=== PATIENT | female | born 1990 | race African-American/Black ===

== ENCOUNTER 2017-12-19 18:06 | Emergency (ER) | payer MEDICAID ==
[~2017-12-19] VITALS: Ht 160 cm; Wt 86.6 kg
[~2017-12-19 18:06] MED LIST: AMOXICILLIN500 MG ORAL; CYCLOBENZAPRINE10 MG ORAL; FLUCONAZOLE100 MG ORAL; IBUPROFEN600 MG ORAL; KENALOG 0.1% CR15 GM APPLIC; MEDROL DOSEPAK4 MG ORAL; NIZORAL 2% C1 APPLIC TOPIC; NKM; NORCO 5-325 TA1 EACH ORAL
[2017-12-19 18:20] VITALS: BP 126/78
[2017-12-19] MEDS ORDERED: Lidocaine 2% Visc 15ml soln ORAL ONE (19:15)
--- NOTE | 2017-12-19 19:15 | Emergency Room Report ---
History of Present Illness General Chief Complaint: Pain Source: Patient Present Illness HPI 27-year-old female presents to the emergency department complaining of 7 out of 10 in severity tightness/burning sensation in her chest 2 days. Patient denies history of acid reflux or cardiac history. Patient states that pain is exacerbated upon taking deep breaths or swallowing. She denies trauma, fall or recent upper respiratory symptoms. Patient denies history of asthma, COPD or smoking. She denies abdominal pain. Pt. reports position does not affect her symptoms. Pt. denies taking estrogen related medications, recent travel or surgeries. Denies symptoms of claudication. Denies CP, Palpitations, LOC, AMS, dizziness, Changes in Vision, Sensation, paresthesias, or a sudden severe headache. Denies Pmhx. Pt. reports she is adopted and Family medical hx is unk. Allergies: Coded Allergies: No Known Allergies (Unverified , 01/21/14) Patient History Past Medical History: none, see triage record Past Surgical History: none Pertinent Family History: none Now: No Reviewed Nursing Documentation: PMH: Agreed; PSxH: Agreed Nursing Documentation-PMH Past Medical History: No Stated History Review of Systems All Other Systems: negative except mentioned in HPI Physical Exam Vital Signs Date Time Temp Pulse Resp B/P (MAP) Pulse Ox O2 Delivery O2 Flow Rate FiO2 12/19/17 18:09 97.9 83 17 126/78 98 Room Air Sp02 EP Interpretation: reviewed, normal General Appearance: no apparent distress, alert, GCS 15, non-toxic Head: normocephalic, atraumatic Eyes: bilateral eye normal inspection, bilateral eye PERRL ENT: hearing grossly normal, normal pharynx, normal voice, uvula midline, moist mucus membranes Neck: full range of motion Respiratory: chest non-tender, lungs clear, normal breath sounds, no respiratory distress, no accessory muscle use, no wheezing, speaking full sentences Cardiovascular #1: regular rate, rhythm, no edema, normal capillary refill Gastrointestinal: normal bowel sounds, non tender, soft Musculoskeletal: back normal, gait/station normal, normal range of motion, non- tender Neurologic: alert, oriented x3, responsive, motor strength/tone normal, sensory intact, speech normal, grossly normal Psychiatric: judgement/insight normal Skin: normal color, no rash, warm/dry, well hydrated Lymphatic: no adenopathy Medical Decision Making PA Attestation Dr. Wyman is my supervising Physician whom patient management has been discussed with. Diagnostic Impression: Primary Impression: Gastritis Qualified Codes: K29.70 - Gastritis, unspecified, without bleeding Additional Impression: Nonspecific chest pain ER Course 27-year-old female presents to the emergency department complaining of 7 out of 10 in severity tightness/burning sensation in her chest 2 days. Patient denies history of acid reflux or cardiac history. Patient states that pain is exacerbated upon taking deep breaths or swallowing. She denies trauma, fall or recent upper respiratory symptoms. Patient denies history of asthma, COPD or smoking. She denies abdominal pain. Pt. reports position does not affect her symptoms. Pt. denies taking estrogen related medications, recent travel or surgeries. Denies symptoms of claudication. Denies CP, Palpitations, LOC, AMS, dizziness, Changes in Vision, Sensation, paresthesias, or a sudden severe headache. Denies Pmhx. Pt. reports she is adopted and Family medical hx is unk. Ddx considered but are not limited to GE, colitis, acute appy, SBO, H.pylori, Gastritis, PNA, pericarditis just to name a few. Vital signs: pt. is afebrile, H&PE are most consistent with Gastritis - no evidence to suggest acute abdomen on physical exam. ORDERS: -EKG and CXR: unremarkable ED INTERVENTIONS: -Mylanta PO -Lidocaine PO -Pepcid PO -I do not identify an emergent condition at this time. With current presentation , pt. is stable for close outpatient follow up and conservative treatment. D/ w pt. to return promptly to ED with worsening or new symptoms.- Pt. (and or responsible democrat) verbalizes' understanding and agreement with proposed treatment plan.proposed treatment plan. DISCHARGE: At this time pt. is stable for d/c to home. Will provide printed patient care instructions, and any necessary prescriptions. Care plan and follow up instructions have been discussed with the patient prior to discharge. EKG Diagnostic Results EP Interpretation: Dr. Wyman Rate: normal - 84 Rhythm: NSR ST Segments: no acute changes ASA given to the pt in ED: No PA Scribe Text This Interpretation was scribed by MYRA Mathias. Chest X-Ray Diagnostic Results Chest X-Ray Diagnostic Results : Chest X-Ray Ordered: Yes # of Views/Limited/Complete: 1 View Indication: Shortness of Breath EP Interpretation: Yes MYRA Xray: Interpretation reviewed, by supervising MD, and agrees with findings. Interpretation: no consolidation, no effusion, no pneumothorax, no acute cardiopulmonary disease Impression: No acute disease Electronically Signed by: Winter Mathias PA-C Last Vital Signs Date Time Temp Pulse Resp B/P (MAP) Pulse Ox O2 Delivery O2 Flow Rate FiO2 12/19/17 18:20 97.9 92 16 126/78 98 Room Air Disposition: HOME, SELF-CARE Condition: Stable Scripts Simethicone* (SIMETHICONE*) 80 Mg Tab.chew 80 MG ORAL Q8H PRN for GAS PAIN, #20 TAB 0 Refills Prov: Winter Mathias 12/19/17 Ranitidine Hcl* (ZANTAC*) 150 Mg Tablet 150 MG ORAL TWICE A DAY, #14 TAB Prov: Winter Mathias 12/19/17 Patient Instructions: Food Choices for Gastroesophageal Reflux Disease, Adult, [id number], Gastroesophageal Reflux Disease, Adult, [id number], Nonspecific Chest Pain, [id number] Additional Instructions: Take medications as directed. Follow up with a Primary Care Provider in 3-5 days, even if your symptoms have resolved. --Please review list of primary care clinics, if you do not already have a primary care provider Return sooner to ED if new symptoms occur, or current symptoms become worse. - Please note that this Emergency Department Report was dictated using [employer] worker technology software, occasionally this can lead to erroneous entry secondary to interpretation by the dictation equipment. Winter Mathias Dec 19, 2017 19:15
[2017-12-19] MEDS ORDERED: RANITIDINE HCL150 MG ORAL (19:16)
[2017-12-19] MEDS ORDERED: SIMETHICONE80 MG ORAL (19:16)
[2017-12-19 19:53] VITALS: BP 122/76
[2017-12-19 19:54] VITALS: BP 122/76
--- NOTE | 2017-12-20 13:51 | Diagnostic Imaging Report ---
Indication: Chest pain Comparison: 01/21/2014 A single view chest radiograph was obtained. Findings: Cardiomediastinal appearance is within normal limits for age. The lungs are clear. Pulmonary vascularity is appropriate. The diaphragmatic contour is smooth and costophrenic angles are sharp. No pleural effusions are identified. The bones are unremarkable. Impression: No acute findings
--- NOTE | 2017-12-21 15:15 | Cardiology Report ---
APPROVED REPORT EKG Measurement Heart [id number] Normal sinus rhythm Possible Left atrial enlargement Nonspecific T wave abnormality Abnormal ECG
== END 2017-12-19 19:55 | disposition home or self-care (01) ==
LOC: EMR 18:20
DX: K29.70 Gastritis, unspecified, without bleeding (principal); R07.89 Other chest pain
CPT/HCPCS: 71045; 93005; 99283

== ENCOUNTER 2018-07-03 17:51 | Emergency (ER) | payer MEDICAID ==
[~2018-07-03] VITALS: Ht 160 cm; Wt 77.1 kg
[~2018-07-03 17:51] MED LIST changes: +RANITIDINE HCL150 MG ORAL; +SIMETHICONE80 MG ORAL
[2018-07-03 17:56] VITALS: BP 123/80
--- NOTE | 2018-07-03 18:23 | Emergency Room Report ---
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 Denies fall and injury. Complains of a pulsatile pain in the right forearm with minimal tingling however denies numbness. Pain started this morning and progressively worsened throughout the day. 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 Not taking any medication for pain came to the emergency room for worsening pain at work. Denies tingling and numbness, and all other injuries. Denies chest pain , palpitation, shortness of breath, and all other associated symptoms Allergies: Coded Allergies: No Known Allergies (Unverified , 01/21/14) Patient History Past Medical History: see triage record Past Surgical History: unable to obtain Pertinent Family History: none Last Menstrual Period: 06/02/18 Now: No Immunizations: UTD Reviewed Nursing Documentation: PMH: Agreed; PSxH: Agreed Nursing Documentation-PMH Past Medical History: No History, Except For Review of Systems All Other Systems: negative except mentioned in HPI Physical Exam Vital Signs Date Time Temp Pulse Resp B/P (MAP) Pulse Ox O2 Delivery O2 Flow Rate FiO2 07/03/18 17:56 97.9 76 16 123/80 (94) 97 Room Air Sp02 EP Interpretation: reviewed, normal General Appearance: normal inspection, well appearing, no apparent distress, alert Head: normocephalic, atraumatic Eyes: bilateral eye normal inspection, bilateral eye PERRL ENT: normal ENT inspection, hearing grossly normal Neck: normal inspection, full range of motion, supple Respiratory: normal inspection, chest non-tender, lungs clear, no rhonchi, no wheezing Cardiovascular #1: normal inspection, regular rate, rhythm, no edema, no murmur Cardiovascular #2: 2+ radial (R), 2+ radial (L) Gastrointestinal: normal inspection, non tender, soft, no mass Musculoskeletal: back normal, digits/nails normal, gait/station normal, normal range of motion, swelling - Right dorsal forearm Neurologic: normal inspection, alert, oriented x3 Psychiatric: normal inspection, judgement/insight normal Skin: normal inspection, normal color, no rash Lymphatic: normal inspection, no adenopathy Medical Decision Making PA Attestation All my diagnosis and treatment plans were reviewed ad discussed with my supervising physician Dr. 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 Denies fall and injury. Complains of a pulsatile pain in the right forearm with minimal tingling however denies numbness. Pain started this morning and progressively worsened throughout the day. 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 Not taking any medication for pain came to the emergency room for worsening pain at work. Denies tingling and numbness, and all other injuries. Denies chest pain , palpitation, shortness of breath, and all other associated symptoms Ddx considered but are not limited to: right forearm sprain, strain, fracture Vital signs: are WNL, pt. is afebrile H&PE are most consistent with: right forearm strain ORDERS: naproxen, robaxin ED INTERVENTIONS: None required at this time. DISCHARGE: At this time pt. is stable for d/c to home. Will provide printed patient care instructions, and any necessary prescriptions. Care plan and follow up instructions have been discussed with the patient prior to discharge. I explained to the patient that since this is due to heavy lifting it is related to muscle strain and no x-rays needed at this point as there was no involvement of bone however if the pain continues to be bothersome to patient patient to follow-up with a primary care provider and have further imaging such as MRI done take medication as directed, icing and heating and further follow- up and aftercare was discussed with the patient Last Vital Signs Date Time Temp Pulse Resp B/P (MAP) Pulse Ox O2 Delivery O2 Flow Rate FiO2 07/03/18 17:56 97.9 76 16 123/80 (94) 97 Room Air Disposition: HOME, SELF-CARE Condition: Stable Scripts Naproxen* (NAPROXEN*) 500 Mg Tablet 500 MG ORAL TWICE A DAY, #30 TAB Prov: Camilo Lambert 07/03/18 Methocarbamol* (ROBAXIN*) 500 Mg Tablet 500 MG PO TID, #21 TAB 0 Refills Prov: Camilo Lambert 07/03/18 Patient Instructions: Muscle Cramps and Spasms, [id number] Additional Instructions: Take medication as directed, avoid strenuous physical activity, follow with your primary care provider no x-ray is indicated at this point as there was no trauma, no injury. injury is secondary to straining of your muscle and compression on nerves. Camilo Lambert July 03, 2018 18:23
[2018-07-03] MEDS ORDERED: ROBAXIN500 MG PO (18:25)
[2018-07-03] MEDS ORDERED: NAPROXEN500 M2 ORAL (18:25)
[2018-07-03 18:33] VITALS: BP 123/80
== END 2018-07-03 18:35 | disposition home or self-care (01) ==
LOC: EMR 18:24
DX: S56.911A Strain of unspecified muscles, fascia and tendons at forearm level, right arm, initial encounter (principal); X50.0XXA Overexertion from strenuous movement or load, initial encounter; Y92.9 Unspecified place or not applicable
CPT/HCPCS: 99282

== ENCOUNTER 2018-07-09 15:44 | Emergency (ER) | payer MEDICAID ==
[~2018-07-09] VITALS: Ht 160 cm; Wt 81.6 kg
[~2018-07-09 15:44] MED LIST changes: +NAPROXEN500 M2 ORAL; +ROBAXIN500 MG PO
[2018-07-09] MEDS ORDERED: Ketorolac 30mg Inj IM ONE (16:30)
--- NOTE | 2018-07-09 16:33 | Emergency Room Report ---
History of Present Illness General Chief Complaint: Back Pain-No Injury Source: Patient Present Illness HPI 27-year-old female presents to the emergency department complaining of 10 out of 10 in severity localized right-sided lower posterior pain that she describes as a sharp sensation with attempts to move or taking a deep breath. Patient denies tenderness and not area. Patient denies trauma or fall, recent URI, history of asthma/COPD/smoking. Patient reports she just began having a cough today. Patient states that her symptoms began 3 days ago. Patient denies anterior chest pain/tightness, hemoptysis or lower extremity edema. Patient denies taking control and denies recent extended travel. Patient reports that she has not found any relieving factors at this time. She denies abdominal pain." Low back pain, urinary frequency, hematuria , urgency or dysuria. Allergies: Coded Allergies: No Known Allergies (Unverified , 01/21/14) Patient History Past Medical History: see triage record Past Surgical History: none Pertinent Family History: none Last Menstrual Period: last week Now: No Reviewed Nursing Documentation: PMH: Agreed; PSxH: Agreed Nursing Documentation-PMH Past Medical History: No Stated History Review of Systems All Other Systems: negative except mentioned in HPI Physical Exam Vital Signs Date Time Temp Pulse Resp B/P (MAP) Pulse Ox O2 Delivery O2 Flow Rate FiO2 07/09/18 15:57 98.6 80 18 118/69 (85) 99 Room Air Sp02 EP Interpretation: reviewed, normal General Appearance: no apparent distress, alert, GCS 15, non-toxic Head: normocephalic, atraumatic Eyes: bilateral eye normal inspection, bilateral eye PERRL ENT: hearing grossly normal, normal voice Neck: full range of motion Respiratory: chest non-tender, lungs clear, normal breath sounds, no respiratory distress, no accessory muscle use, speaking full sentences, other - decreased ascultation of breath sounds on the lower right lung jung, pt is taking shallow breaths. Cardiovascular #1: regular rate, rhythm, no edema, normal capillary refill Gastrointestinal: non tender, soft Genitourinary: normal inspection, no CVA tenderness Musculoskeletal: back normal, gait/station normal, normal range of motion, non- tender Neurologic: alert, oriented x3, responsive, motor strength/tone normal, sensory intact, speech normal, grossly normal Psychiatric: judgement/insight normal Skin: normal color, no rash, warm/dry, well hydrated Medical Decision Making PA Attestation Dr. lopez is my supervising Physician whom patient management has been discussed with. Diagnostic Impression: Primary Impression: Pleurisy Additional Impression: Muscle pain ER Course 27-year-old female presents to the emergency department complaining of 10 out of 10 in severity localized right-sided lower posterior pain that she describes as a sharp sensation with attempts to move or taking a deep breath. Patient denies tenderness and not area. Patient denies trauma or fall, recent URI, history of asthma/COPD/smoking. Patient reports she just began having a cough today. Patient states that her symptoms began 3 days ago. Patient denies anterior chest pain/tightness, hemoptysis or lower extremity edema. Patient denies taking control and denies recent extended travel. Patient reports that she has not found any relieving factors at this time. She denies abdominal pain." Low back pain, urinary frequency, hematuria , urgency or dysuria. Ddx considered but are not limited to pleurisy, PE, pneumothorax, atelectasis, muscle strain, rib contusion, or pneumonia just to name a few. Vital signs: are WNL, pt. is afebrile H&PE are most consistent with ORDERS: -Chest x-ray 2 views: ED INTERVENTIONS: -Toradol IM DISCHARGE: At this time pt. is stable for d/c to home. Will provide printed patient care instructions, and any necessary prescriptions. Care plan and follow up instructions have been discussed with the patient prior to discharge. Chest X-Ray Diagnostic Results Chest X-Ray Diagnostic Results : # of Views/Limited/Complete: 2 View Indication: Chest Pain EP Interpretation: Yes PA Xray: Interpretation reviewed, by supervising MD, and agrees with findings. Interpretation: no consolidation, no effusion, no pneumothorax, no acute cardiopulmonary disease Impression: No acute disease Electronically Signed by: Winter Mathias PA-C Last Vital Signs Date Time Temp Pulse Resp B/P (MAP) Pulse Ox O2 Delivery O2 Flow Rate FiO2 07/09/18 15:57 98.6 80 18 118/69 (85) 99 Room Air Status: improved Disposition: HOME, SELF-CARE Condition: Stable [facility] Patient Instructions: Pleurisy, [id number] Additional Instructions: Take medications as directed. Follow up with a Primary Care Provider in 3-5 days, even if your symptoms have resolved. --Please review list of primary care clinics, if you do not already have a primary care provider Return sooner to ED if new symptoms occur, or current symptoms become worse. Do not drink alcohol, drive, or operate heavy machinery while taking Cough Syrup as this may cause drowsiness. - Please note that this Emergency Department Report was dictated using [employer]ist technology software, occasionally this can lead to erroneous entry secondary to interpretation by the dictation equipment. Winter Mathias July 09, 2018 16:33
[2018-07-09 17:18] VITALS: BP 118/69
[2018-07-09] MEDS ORDERED: NAPROXEN500 M2 ORAL (17:20)
[2018-07-09] MEDS ORDERED: PROMETHAZINE-C118 M1 ORAL (17:20)
--- NOTE | 2018-07-09 17:20 | NUR ---
ER DISCHARGE NOTE:pain meds given and x-ray done Patient is cleared to be discharged per ERPA, pt is aox4, on room air, with stable vital signs. pt was given dc and prescription instructions, pt was able to verbalize understanding, pt is able to ambulate with steady gait. pt took all belongings.
[2018-07-09 17:21] VITALS: BP 118/69
--- NOTE | 2018-07-10 11:00 | Diagnostic Imaging Report ---
Indication: Chest pain Technique: 2 views of the chest Comparison: 12/19/2017 single view chest Findings: Exam is somewhat limited as patient unable to elevate right arm. Lungs and pleural spaces are clear. The heart size is normal. The bones are unremarkable. No significant interim change. Impression: Negative
== END 2018-07-09 17:30 | disposition home or self-care (01) ==
LOC: EMR 16:20
DX: R09.1 Pleurisy (principal); M54.5 Low back pain; R05 Cough
CPT/HCPCS: 71046; 96372; 99283; J1885

== ENCOUNTER 2019-03-18 16:31 | Emergency (ER) | payer MEDICAID, OTHER ==
[~2019-03-18] VITALS: Ht 160 cm; Wt 90.7 kg
[~2019-03-18 16:31] MED LIST changes: +PROMETHAZINE-C118 M1 ORAL
--- NOTE | 2019-03-18 16:41 | NUR ---
ED Nurse Note: Pt ambulated to ed c/o sore throat x 2-3 weeks. pt reports left earache, discomfort has present to the right ear today. pt denies taking medication prior to arrival; states she has just been drinking tea.
[2019-03-18 16:42] VITALS: BP 119/72
--- NOTE | 2019-03-18 16:54 | Emergency Room Report ---
History of Present Illness General Chief Complaint: Sore Throat Source: Patient Present Illness HPI 28-year-old female with no significant past medical history here complaining of 2 weeks of 10 out of 10 sore throat, headache, cough and congestion. Also complains of left ear pain and right ear pain that started few days ago. Denies abdominal pain, nausea vomiting, generalized body ache. Denies chest pain shortness of breath. Denies cough. Complains of minimal congestion. Has not taken medication for symptom relief. Appears to be stable with stable vital signs. Denies urinary symptoms and at this time Allergies: Coded Allergies: No Known Allergies (Unverified , 01/21/14) Patient History Past Medical History: see triage record Past Surgical History: none Pertinent Family History: none Last Menstrual Period: Mar 12, 2019 Now: No Immunizations: UTD Reviewed Nursing Documentation: PMH: Agreed; PSxH: Agreed Nursing Documentation-PMH Past Medical History: No Stated History Review of Systems All Other Systems: negative except mentioned in HPI Physical Exam Vital Signs Date Time Temp Pulse Resp B/P (MAP) Pulse Ox O2 Delivery O2 Flow Rate FiO2 03/18/19 16:35 98.1 85 18 119/72 (88) 96 Room Air Sp02 EP Interpretation: reviewed, normal General Appearance: no apparent distress, alert, GCS 15, non-toxic Head: normocephalic, atraumatic Eyes: bilateral eye normal inspection, bilateral eye PERRL ENT: no angioedema, nasal congestion, pharyngeal erythema, tonsillar exudate Neck: full range of motion, supple, no meningismus, supple/symm/no masses Respiratory: chest non-tender, lungs clear, normal breath sounds, no rhonchi, no respiratory distress, no retraction, no accessory muscle use, no wheezing, speaking full sentences Cardiovascular #1: regular rate, rhythm, no edema, no murmur Gastrointestinal: normal bowel sounds, non tender, soft, non-distended, no guarding, no rebound Rectal: deferred Genitourinary: no CVA tenderness Musculoskeletal: back normal, normal range of motion, no calf tenderness, gait/ station normal, non-tender Neurologic: alert, motor strength/tone normal, oriented x3, sensory intact, responsive, speech normal Psychiatric: judgement/insight normal, memory normal, mood/affect normal, no suicidal/homicidal ideation Skin: no rash, normal color, warm/dry Lymphatic: no adenopathy Medical Decision Making PA Attestation Diagnosis and treatment plans were reviewed and discussed with my supervising physician Dr. Hdz Diagnostic Impression: Primary Impression: Strep pharyngitis ER Course 28-year-old female with no significant past medical history here complaining of 2 weeks of 10 out of 10 sore throat, headache, cough and congestion. Also complains of left ear pain and right ear pain that started few days ago. Denies abdominal pain, nausea vomiting, generalized body ache. Denies chest pain shortness of breath. Denies cough. Complains of minimal congestion. Has not taken medication for symptom relief. Appears to be stable with stable vital signs. Denies urinary symptoms and at this time Ddx considered but are not limited to: strep pharyngitis, URI, tonsillitis, peritonsillar abscess, influenza Vital signs: are WNL, pt. is afebrile H&PE are most consistent with: Strep pharyngitis ORDERS: augmentin, flonase ED INTERVENTIONS: None required at this time. DISCHARGE: At this time pt. is stable for d/c to home. Will provide printed patient care instructions, and any necessary prescriptions. Care plan and follow up instructions have been discussed with the patient prior to discharge. Last Vital Signs Date Time Temp Pulse Resp B/P (MAP) Pulse Ox O2 Delivery O2 Flow Rate FiO2 03/18/19 16:42 98.1 86 18 119/72 96 Room Air Disposition: HOME, SELF-CARE Condition: Stable Scripts Fluticasone Propionate (Flonase Allergy Relief) 9.9 Ml [place].susp 2 SPRAYS NS BID, #10 ML Prov: Camilo Lambert 03/18/19 Amoxicillin/Potassium Clav 875-125* (AUGMENTIN 875-125 TABLET*) 1 Each Tablet 1 TAB ORAL TWICE A DAY for 10 Days, #20 TAB Prov: Camilo Lambert 03/18/19 Patient Instructions: Strep Throat Additional Instructions: Take medication as directed, follow-up with your primary care provider, increase oral hydration, if worsening symptoms return to the emergency room Camilo Lambert Mar 18, 2019 16:54
[2019-03-18] MEDS ORDERED: FLONASE ALLERG9.9 ML NS (16:55)
[2019-03-18] MEDS ORDERED: AUGMENTIN 875-1 EAC1 ORAL (16:55)
[2019-03-18 17:02] VITALS: BP 123/71
--- NOTE | 2019-03-18 17:03 | NUR ---
ER DISCHARGE NOTE: Patient is cleared to be discharged per ERMD, pt is aox4, on room air, with stable vital signs. pt was given dc and prescription instructions, pt was able to verbalize understanding, pt id band removed. pt is able to ambulate with steady gait. pt took all belongings.
== END 2019-03-18 17:00 | disposition home or self-care (01) ==
LOC: EMR 16:54
DX: J02.0 Streptococcal pharyngitis (principal)
CPT/HCPCS: 99282

== ENCOUNTER 2019-06-24 22:50 | Emergency (ER) | payer OTHER ==
[~2019-06-24] VITALS: Ht 160 cm; Wt 86.2 kg
[~2019-06-24 22:50] MED LIST changes: +AUGMENTIN 875-1 EAC1 ORAL; +FLONASE ALLERG9.9 ML NS
[2019-06-24 23:07] VITALS: BP 141/87
[2019-06-24] MEDS ORDERED: AMOXICILLIN500 MG ORAL (23:12)
[2019-06-24] MEDS ORDERED: PRILOSEC OTC20 MG ORAL (23:12)
--- NOTE | 2019-06-24 23:19 | Emergency Room Report ---
History of Present Illness General Chief Complaint: Sore Throat Source: Patient Present Illness HPI Patient is a 28-year-old female presents after increased sore throat for the past 3 days. Gradual onset of symptoms. Denies any vomiting. Increased pain with swallowing. Denies any fever or cough. Had not been having any shortness of breath. Denies any increased pain with deep breath. Denies any prior past medical history. Does not take medications regularly. Denies any sick contacts with illness. Is taking medication for seasonal allergies. Allergies: Coded Allergies: No Known Allergies (Unverified , 01/21/14) COVID-19 Screening Contact w/high risk pt: No Recent Travel to affected area: No Experienced COVID-19 symptoms?: No COVID-19 Testing performed TRAINING AND DEVELOPMENT HEAD: No Patient History Past Medical History: see triage record Last Menstrual Period: 06/19/19 Now: No Reviewed Nursing Documentation: PMH: Agreed; PSxH: Agreed Nursing Documentation-PMH Past Medical History: No Stated History Review of Systems All Other Systems: negative except mentioned in HPI Physical Exam Vital Signs Date Time Temp Pulse Resp B/P (MAP) Pulse Ox O2 Delivery O2 Flow Rate FiO2 06/24/19 22:55 98.8 86 14 141/87 (105) 97 Room Air General Appearance: well appearing, no apparent distress, alert, GCS 15, obese Head: normocephalic, atraumatic ENT: hearing grossly normal, normal voice, uvula midline, pharyngeal erythema Neck: full range of motion, supple Respiratory: no respiratory distress, speaking full sentences Cardiovascular #1: normal peripheral pulses, regular rate, rhythm, no edema Gastrointestinal: normal bowel sounds, non tender, soft Musculoskeletal: normal inspection, no calf tenderness Neurologic: alert, motor strength/tone normal, nursing associate III-XII nml as tested, oriented x3, normal gait Psychiatric: mood/affect normal Skin: no rash Medical Decision Making Diagnostic Impression: Primary Impression: Tonsillitis ER Course Patient presented for sore throat. Differential diagnosis include was not limited to gastritis, tonsillitis, esophagitis among others. Patient has a benign exam and does not appear to require any imaging or laboratory testing at this time. Patient appears to have some evidence of tonsillitis. Patient was given prescription for amoxicillin as well as acid blockers. She was advised to follow-up with her primary care physician for recheck. Does not appear to be in any acute distress and does not have any evidence of abscess. The patient is advised to follow up with primary care doctor in 1-2 days. Patient is advised to return if any worsening condition or if any changes in status that are concerning. This report is dictated with [employer] computer assistant software which may occasionally lead to discrepancies related to use of this software. Labs Test 06/24/19 23:20 Urine HCG, Qualitative Negative (NEGATIVE) Labs Test 06/24/19 23:20 Last Vital Signs Date Time Temp Pulse Resp B/P (MAP) Pulse Ox O2 Delivery O2 Flow Rate FiO2 06/24/19 23:07 98.8 14 141/87 97 Room Air 06/24/19 22:55 86 Status: improved Disposition: HOME, SELF-CARE Condition: Stable Scripts Omeprazole Magnesium (PRILOSEC OTC) 20 Mg Tablet.dr 20 MG ORAL DAILY, #30 TAB Prov: Santiago Jacobsen MD 06/24/19 Amoxicillin* (AMOXIL*) 500 Mg Capsule 500 MG ORAL THREE TIMES A DAY, #21 CAP Prov: Santiago Jacobsen MD 06/24/19 Patient Instructions: Sore Throat Additional Instructions: Gargle with salt water. Follow up with your doctor for recheck in 1-2 days. Return if worse. Santiago Jacobsen MD June 24, 2019 23:19
[2019-06-24 23:30] VITALS: BP 141/87
== END 2019-06-24 23:30 | disposition home or self-care (01) ==
LOC: EMR 23:18
DX: J03.90 Acute tonsillitis, unspecified (principal)
CPT/HCPCS: 81025; J8540; Z7502; 99282

== ENCOUNTER 2019-07-28 18:05 | Emergency (ER) | payer OTHER ==
[~2019-07-28] VITALS: Ht 160 cm; Wt 90.7 kg
[~2019-07-28 18:05] MED LIST changes: +PRILOSEC OTC20 MG ORAL
[2019-07-28 18:44] VITALS: BP 141/86
[2019-07-28] MEDS ORDERED: Ketorolac 30mg Inj IM ONE (18:45)
[2019-07-28] MEDS ORDERED: Metoclopramide 10mg/2ml Inj IM ONE (18:45)
--- NOTE | 2019-07-28 19:13 | Emergency Room Report ---
History of Present Illness General Chief Complaint: Headache Source: Patient (Winter Mathias) Present Illness HPI 28 YO female with no prior hx of DELUCA presents to the ED c/o 10/21 in severity progressive onset DELUCA since last Saturday. Pt. reports DELUCA when she woke up. Pt. reports DELUCA resolved on its own but she always felt it slightly "there" as though it could come back at any time. She reports DELUCA has not improved today. She localizes DELUCA to Front of the forehead and describes tight/intermittent in nature. She denies visual changes. She reports some light sensitivity. Denies hyperacusis. She denies N/V/F/C. She denies urinary frequency, urgency, dysuria or hematuria. She denies neck pain /stiffness. She denies or suspicion of . Pt. reports she just had her period last week. She reports when she yawns she feels her forehead muscles stretching and this provides some alleviation of her pain. She denies tenderness. She denies dizziness, vertigo, ringing in the ears or paresthesias. (Winter Mathias) Allergies: Coded Allergies: No Known Allergies (Unverified , 01/21/14) COVID-19 Screening Contact w/high risk pt: No Recent Travel to affected area: No Experienced COVID-19 symptoms?: No COVID-19 Testing performed CARROTING MACHINE OPERATOR: No (Winter Mathias) Patient History Past Medical History: see triage record Past Surgical History: none Pertinent Family History: none Last Menstrual Period: last week Now: No Reviewed Nursing Documentation: PMH: Agreed; PSxH: Agreed (Winter Mathias) Nursing Documentation-PMH Past Medical History: No Stated History (Winter Mathias) Physical Exam Vital Signs Date Time Temp Pulse Resp B/P (MAP) Pulse Ox O2 Delivery O2 Flow Rate FiO2 07/28/19 18:17 98.4 76 20 141/86 (104) 99 Room Air Sp02 EP Interpretation: reviewed, normal General Appearance: no apparent distress, alert, GCS 15, non-toxic Head: normocephalic, atraumatic Eyes: bilateral eye normal inspection, bilateral eye PERRL, bilateral eye other - no photophobia ENT: hearing grossly normal, normal voice Neck: full range of motion, no meningismus, no bony tend Respiratory: lungs clear, normal breath sounds, speaking full sentences Cardiovascular #1: regular rate, rhythm Gastrointestinal: non tender, soft Musculoskeletal: normal range of motion, gait/station normal, non-tender Neurologic: alert, motor strength/tone normal, building carpenter helper III-XII nml as tested, distal neuro normal, oriented x3, sensory intact, cerebellar normal, responsive , speech normal, normal gait, no pronator, grossly normal, no focal defects Psychiatric: judgement/insight normal (Winter Mathias) Medical Decision Making PA Attestation Dr. Jacobsen is my supervising Physician whom patient management has been discussed with. (Winter Mathias) Diagnostic Impression: Primary Impression: Head ache ER Course Pt. signed out to attending physician after initial HPI, ROS and PE. (Winter Mathias) ER Course Patient Was endorsed to me after increased headache. Patient was noted to have improvement in her headache After medications. CT imaging showed no evidence of acute abnormality. Patient was advised to follow-up with her primary care physician for neurology referral. Urinalysis showed no evidence of or urinary infection. Patient appears to be stable for outpatient management she was given prescription for Fioricet. She is advised to follow-up with her primary care physician for neurology referral. Labs Test 07/28/19 18:30 Urine Color Pale yellow Urine Appearance Clear Urine pH 7 (4.5-8.0) Urine Specific [place] 1.010 (1.005-1.035) Urine Protein Negative (NEGATIVE) Urine Glucose (UA) Negative (NEGATIVE) Urine Ketones Negative (NEGATIVE) Urine Blood Negative (NEGATIVE) Urine Nitrite Negative (NEGATIVE) Urine Bilirubin Negative (NEGATIVE) Urine Urobilinogen Normal MG/DL (0.0-1.0) Urine Leukocyte Esterase Negative (NEGATIVE) Urine HCG, Qualitative Negative (NEGATIVE) (Santiago Jacobsen MD) Last Vital Signs Date Time Temp Pulse Resp B/P (MAP) Pulse Ox O2 Delivery O2 Flow Rate FiO2 07/28/19 18:44 98.4 20 141/86 99 Room Air 07/28/19 18:17 76 (Winter Mathias) Status: improved (Santiago Jacobsen MD) Disposition: HOME, SELF-CARE Condition: Stable Signed Out To: Dr. Jacobsen (Winter Mathias) Scripts Acetamin/Butalbital/Caffeine* (FIORICET*) 1 Ea Tab 1 TAB ORAL Q6H, #15 TAB 0 Refills Prov: Santiago Jacobsen MD 07/28/19 Referrals: NON PHYSICIAN (PCP) Winter Mathias Jul 28, 2019 19:13 Santiago Jacobsen MD Jul 28, 2019 19:49
[2019-07-28 19:14] LABS: APPEARANCE,URINE CLEAR; BILIRUBIN, URINE NEGATIVE (NEGATIVE); COLOR,URINE PALE YELLOW; GLUCOSE, URINE (UA) NEGATIVE (NEGATIVE); KETONES,URINE NEGATIVE (NEGATIVE); LEUKOCYTE ESTERASE ,URINE NEGATIVE (NEGATIVE); NITRITE,URINE NEGATIVE (NEGATIVE); PH,URINE 7 (4.5-8.0); PROTEIN,URINE NEGATIVE (NEGATIVE); UROBILINOGEN,URINE NORMAL MG/DL (0.0-1.0)
--- NOTE | 2019-07-28 19:36 | Diagnostic Imaging Report ---
EXAM: CT Head Without Intravenous Contrast CLINICAL HISTORY: PAIN TECHNIQUE: Axial computed tomography images of the head/brain without intravenous contrast. CTDI is 53 mGy and DLP is 1045 mGy-cm. One or more of the following dose reduction techniques were used: automated exposure control, adjustment of the mA and/or kV according to patient size, use of iterative reconstruction technique. COMPARISON: No relevant prior studies available. FINDINGS: Brain: Unremarkable. No hemorrhage. No edema. Ventricles: Unremarkable. Bones/joints: Unremarkable. No acute fracture. Soft tissues: Unremarkable. Sinuses: Unremarkable as visualized. Mastoid air cells: Unremarkable as visualized. IMPRESSION: No acute intracranial abnormality.
[2019-07-28] MEDS ORDERED: FIORICET1 EA ORAL (19:38)
[2019-07-28 19:45] VITALS: BP 136/79
[2019-07-28 19:50] VITALS: BP 141/86
== END 2019-07-28 19:50 | disposition home or self-care (01) ==
LOC: EMR 18:45
DX: R51 Headache (principal)
CPT/HCPCS: 70450; 81003; 81025; 96372; J1885; J2765; Z7502; 99284

== ENCOUNTER 2019-10-23 11:13 | Emergency (ER) | payer MEDICAID, OTHER ==
[~2019-10-23] VITALS: Ht 160 cm; Wt 81.6 kg
[~2019-10-23 11:13] MED LIST changes: +FIORICET1 EA ORAL
[2019-10-23 11:30] VITALS: BP 122/81
--- NOTE | 2019-10-23 12:11 | Emergency Room Report ---
History of Present Illness General Chief Complaint: General Complaint Source: Patient Present Illness HPI Patient is a 29-year-old female presents after increased right-sided breast discomfort and tenderness. Had noticed increased pain to the right armpit area. Denies any fever. Denies any prior history of cancer. She is unsure if she has any family history as she is adopted. Patient denies any recent trauma or . Had not been having any vomiting or diarrhea. Denies being a smoker. Denies any new medications. Allergies: Coded Allergies: No Known Allergies (Unverified , 01/21/14) COVID-19 Screening Contact w/high risk pt: No Recent Travel to affected area: No Experienced COVID-19 symptoms?: No COVID-19 Testing performed CLOTH BOIL OFF MACHINE OPERATOR: No Patient History Past Medical History: see triage record Last Menstrual Period: 10/15/2019 Now: No Reviewed Nursing Documentation: PMH: Agreed; PSxH: Agreed Nursing Documentation-PMH Past Medical History: No Stated History Review of Systems All Other Systems: negative except mentioned in HPI Physical Exam Vital Signs Date Time Temp Pulse Resp B/P (MAP) Pulse Ox O2 Delivery O2 Flow Rate FiO2 10/23/19 11:25 98.2 100 20 119/78 (92) 99 Room Air Sp02 EP Interpretation: reviewed, normal General Appearance: normal inspection, well appearing, no apparent distress, alert, GCS 15 Head: atraumatic ENT: normal ENT inspection, hearing grossly normal, normal voice Neck: normal inspection, full range of motion, supple, no bony tend Respiratory: normal inspection, lungs clear, normal breath sounds, no respiratory distress, no retraction, no wheezing Cardiovascular #1: regular rate, rhythm, no edema Gastrointestinal: normal inspection, normal bowel sounds, non tender, soft, no guarding, no hernia Genitourinary: no CVA tenderness Musculoskeletal: normal inspection, back normal, normal range of motion Neurologic: alert, motor strength/tone normal, traffic chief III-XII nml as tested, responsive, speech normal, normal inspection Psychiatric: normal inspection, judgement/insight normal, mood/affect normal Skin: other - Slight right-sided erythema without any discharge or induration. Medical Decision Making Diagnostic Impression: Primary Impression: Mastitis ER Course Presented for right-sided breast pain. Differential diagnosis include was not limited to mastitis, cancer, , among others. Patient has a benign exam and does not appear to require any imaging or laboratory testing at this time. Patient appears to have some right-sided breast tenderness and associated right axillary adenopathy. Patient does not have any known history or risk factors for cancer however patient was advised to follow-up for outpatient mammography and further imaging studies. Patient was given empiric treatment for mastitis. She was advised to return if worse. No evidence of breast abscess at this time.Patient is advised to have the area rechecked in 1 to 2 days. She is to return if worse. This medical record is generated with [email or web address] gravity meter observer software. There may be some gravity meter observer discrepancies related to use of this software Labs Test 10/23/19 12:12 Urine HCG, Qualitative Negative (NEGATIVE) Last Vital Signs Date Time Temp Pulse Resp B/P (MAP) Pulse Ox O2 Delivery O2 Flow Rate FiO2 10/23/19 11:30 98.2 92 18 122/81 99 Room Air Status: improved Disposition: HOME, SELF-CARE Condition: Stable Scripts Cephalexin* (KEFLEX*) 500 Mg Capsule 500 MG ORAL EVERY 6 HOURS, #28 CAP Prov: Santiago Jacobsen MD 10/23/19 Ibuprofen* (MOTRIN*) 600 Mg Tablet 600 MG ORAL Q8H PRN for FOR PAIN, #30 TAB 0 Refills Prov: Santiago Jacobsen MD 10/23/19 Santiago Jacobsen MD Oct 23, 2019 12:11
[2019-10-23] MEDS ORDERED: IBUPROFEN600 M1 ORAL (12:12)
[2019-10-23] MEDS ORDERED: CEPHALEXIN500 MG ORAL (12:12)
[2019-10-23] MEDS ORDERED: Cephalexin 250mg/5ml Susp 100mL Bottle ORAL ONE (12:15)
[2019-10-23] MEDS ORDERED: Cephalexin 500mg cap ORAL ONE (12:30)
[2019-10-23 12:44] VITALS: BP 118/84
== END 2019-10-23 12:44 | disposition home or self-care (01) ==
LOC: EMR 12:15
DX: N61.0 Mastitis without abscess (principal)
CPT/HCPCS: 81025; Z7502; 99283